=== PATIENT | male | born 1960 | race Caucasian/White ===

== ENCOUNTER 2017-10-23 10:48 | Day surgery (SDC) | payer BC ==
[~2017-10-23] VITALS: Ht 182.9 cm; Wt 85.0 kg
[~2017-10-23 10:48] MED LIST: ASPI81CH PO; ATOR40TA PO; FINA5; FINA5 PO; HYDACE5 PO; Hytrin1 MG PO; IBUP800 PO; LISI5 PO; METO50ER; OXYACE5T PO; RXOXYACE PO
== END 2017-10-23 13:24 | disposition home or self-care (01) ==
LOC: ORSCSDS 10:48
PROVIDERS: Internal Medicine Gastroenterology
PROC: 0DBN8ZX Excision of Sigmoid Colon, Via Natural or Artificial Opening Endoscopic, Diagnostic (ICD-10-PCS; principal; 2017-10-23 12:00)
PROC: 0DBH8ZX Excision of Cecum, Via Natural or Artificial Opening Endoscopic, Diagnostic (ICD-10-PCS; principal; 2017-10-23 12:00)
DX: Z12.11 Encounter for screening for malignant neoplasm of colon (principal); G47.33 Obstructive sleep apnea (adult) (pediatric); I10 Essential (primary) hypertension; D12.0 Benign neoplasm of cecum; D12.5 Benign neoplasm of sigmoid colon; K57.30 Diverticulosis of large intestine without perforation or abscess without bleeding; K64.8 Other hemorrhoids; E78.5 Hyperlipidemia, unspecified; Z79.82 Long term (current) use of aspirin; Z79.899 Other long term (current) drug therapy
CPT/HCPCS: 88305; J7120

== ENCOUNTER → 2022-11-10 | Outpatient (CLI) | payer BC | END | disposition home or self-care (01) | LOC: LAB 18:24 → LAB SHORT 18:24 | DX: L02.416 Cutaneous abscess of left lower limb (principal) | CPT/HCPCS: 87081 ==